=== PATIENT | female | born 1970 | race Caucasian/White ===

== ENCOUNTER 2019-11-26 13:14 | Emergency (ER) | payer OTHER ==
[2019-11-26 13:20] VITALS: BP 144/85
--- NOTE | 2019-11-26 14:37 | ER Document Report ---
HPI - HPI Time Seen by Provider: 11/26/19 14:15 Pain Level: 3 Notes: 49-year-old female patient presenting to the emergency department with complaints of dental pain. Patient reports dental pain has been going on for several days. She states that she knows she has bad teeth. She is specifically complaining at tooth #15 and 16. She states these teeth are broken. She denies fever or drainage from the area. - REPRODUCTIVE Reproductive: DENIES: : Past Medical History - General Information source: Patient - Social History Smoking Status: Never Smoker Chew tobacco use (# tins/day): No Frequency of alcohol use: None Drug Abuse: None Family History: None Patient has suicidal ideation: No Patient has homicidal ideation: No Renal/ Medical History: Denies: Hx Peritoneal Dialysis Musculoskeletal Medical History: Reports Hx Fibromyalgia Psychiatric Medical History: Reports: Hx Depression Past Surgical History: Reports: Hx Orthopedic Surgery - si joint, Other - aneyrsm clipped Vertical Provider Document - CONSTITUTIONAL Notes: PHYSICAL EXAMINATION: GENERAL: Well-appearing, well-nourished and in no acute distress. HEAD: Atraumatic, normocephalic. EYES: Pupils equal round extraocular movements intact, conjunctiva are normal. ENT: Nares patent, poor dentition noted throughout, fractured tooth #15 and 16. No obvious drainable abscess. No evidence of Mio's angina. NECK: Normal range of motion LUNGS: No respiratory distress Musculoskeletal: Normal range of motion NEUROLOGICAL: Normal speech, normal gait. PSYCH: Normal mood, normal affect. SKIN: Warm, Dry, normal turgor, no rashes or lesions noted. - INFECTION CONTROL TRAVEL OUTSIDE OF THE U.S. IN LAST 30 DAYS: No Course - Re-evaluation Re-evalutation: Presentation is most consistent with likely an infected tooth. Airway is patent. Vitals within normal limits. Patient is able swallow without any difficulty. There is no significant facial swelling. No evidence of Mio angina, apical abscess, or airway obstruction. Patient will be started on antibiotics. I've instructed to follow-up with dentistry as earliest ability for definitive management. At this time will discharge with return precautions and follow-up recommendations. Verbal discharge instructions given a the bedside and opportunity for questions given. Medication warnings reviewed. Patient is in agreement with this plan and has verbalized understanding of return precautions and the need for primary care follow-up in the next 24-72 hours. - Vital Signs Vital signs: Temp Pulse Resp BP Pulse Ox 97.8 F 88 16 144/85 H 97 11/26/19 13:19 11/26/19 13:19 11/26/19 13:19 11/26/19 13:19 11/26/19 13:19 Discharge - Discharge Clinical Impression: Dental infection Condition: Stable Disposition: HOME, SELF-CARE Additional Instructions: You have been seen for dental pain. It is very important that you follow-up with a dentist for definitive care. Please return if you develop fever greater than 101, swelling in your face, vomiting, difficulty breathing or swallowing, or any other symptoms that are concerning to you. For pain you should take ibuprofen 800 mg every 8 hours as needed. Prescriptions: Penicillin V Potassium [Penicillin Vk 500 mg Tablet] 500 mg PO BID #20 tablet
[2019-11-26] MEDS ORDERED: LIDOCAINE 2% VISCOUS SOLN 20 ML UDCUP PO ONE (14:43)
== END 2019-11-26 15:06 | disposition home or self-care (01) ==
LOC: ER 13:14
DX: K04.7 Periapical abscess without sinus (principal)
CPT/HCPCS: 99282

== ENCOUNTER 2020-02-18 16:54 | Emergency (ER) | payer OTHER, MEDICAID ==
--- NOTE | 2020-02-18 17:15 | ER Document Report ---
ED Medical Screen (RME) - General Chief Complaint: Post Surgical Pain Stated Complaint: POST SURGICAL PAIN Time Seen by Provider: 02/18/20 17:04 TRAVEL OUTSIDE OF THE U.S. IN LAST 30 DAYS: No - HPI Notes: 02/18/20 17:12 49-year-old female presents to the emergency room with complaints of pain under her left breast after she had a breast reduction and left 3 weeks ago in [place]. States she went to the [facility] 6 days ago was on rides and lifting her arms, states she felt a ripping sensation of her stitches. Patient is on any blood thinners, no chest pain or shortness of breath. Patient is a pack-a-day smoker. Denies any pain that radiates to her back or ripping sensation through her back, only at the area of her stitches. Denies any fevers chills, nausea vomiting or diarrhea. Has not tried any [id number] medications. Has not contacted her surgeon regarding these issues. I have greeted and performed a rapid initial assessment of this patient. A comprehensive ED assessment and evaluation of the patient, analysis of test results and completion of the medical decision making process will be conducted by additional ED providers. PHYSICAL EXAMINATION: GENERAL: Well-appearing, well-nourished and in no acute distress. HEAD: Atraumatic, normocephalic. EYES: Pupils equal round extraocular movements intact, conjunctiva are normal. NECK: Normal range of motion CV: s1, s2 regular. LUNGS: No respiratory distress Musculoskeletal: Normal range of motion SKIN: Warm, Dry, normal turgor, no rashes or lesions noted. Noted erythema around left horizontal stitches with 2 stitches that appear to have been ripped., Right horizontal stitching - Related Data Allergies/Adverse Reactions: No Known Allergies Allergy (Verified 02/18/20 17:02) Past Medical History - Social History Frequency of alcohol use: None Drug Abuse: None Renal/ Medical History: Denies: Hx Peritoneal Dialysis Musculoskeltal Medical History: Reports Hx Fibromyalgia Psychiatric Medical History: Reports: Hx Depression Past Surgical History: Reports: Hx Orthopedic Surgery - si joint, Other - aneyrsm clipped Physical Exam - Vital signs Vitals: Temp Pulse Resp BP Pulse Ox 97.8 F 84 20 129/82 H 97 02/18/20 16:57 02/18/20 16:57 02/18/20 16:57 02/18/20 16:57 02/18/20 16:57 Course - Vital Signs Vital signs: Temp Pulse Resp BP Pulse Ox 97.8 F 84 20 129/82 H 97 02/18/20 16:57 02/18/20 16:57 02/18/20 16:57 02/18/20 16:57 02/18/20 16:57
--- NOTE | 2020-02-18 17:37 | RADIOLOGY REPORT (SQ) ---
EXAM DESCRIPTION: CHEST 2 VIEWS COMPLETED DATE/TIME: 02/18/2020 4:16 pm REASON FOR STUDY: recent breast reduction, chest wall discomfort COMPARISON: None. EXAM PARAMETERS: NUMBER OF VIEWS: two views TECHNIQUE: Digital Frontal and Lateral radiographic views of the chest acquired. RADIATION DOSE: NA LIMITATIONS: none FINDINGS: LUNGS AND PLEURA: No opacities, masses or pneumothorax. No pleural effusion. MEDIASTINUM AND HILAR STRUCTURES: No masses or contour abnormalities. HEART AND VASCULAR STRUCTURES: Heart normal size. No evidence for failure. BONES: No acute findings. HARDWARE: None in the chest. OTHER: No other significant finding. IMPRESSION: NO ACUTE RADIOGRAPHIC FINDING IN THE CHEST. TECHNICAL DOCUMENTATION: JOB ID: [id number] 2010 [employer]- All Rights Reserved Reading location - IP/workstation name: [email or web address]
[2020-02-18 17:50] LABS: ABSOLUTE BASOPHILS # (AUTO) 0.1 10^3/uL (0.0-0.2); ABSOLUTE EOSINOPHILS # (AUTO) 0.6 10^3/uL (0.0-0.6); ABSOLUTE LYMPHOCYTES (AUTO) 2.7 10^3/uL (0.5-4.7); ABSOLUTE MONOCYTES (AUTO) 0.8 10^3/uL (0.1-1.4); ABSOLUTE NEUT (AUTO) 3.6 10^3/uL (1.7-8.2); BASOPHILS % (AUTO) 0.7 % (0-2); EOSINOPHILS % (AUTO) 7.5 % (0-6); HEMATOCRIT 34.7 % (36.0-47.0); HEMOGLOBIN 12.1 g/dL (12.0-15.5); LYMPHOCYTES % (AUTO) 35.3 % (13-45); MEAN CORPUSCULAR HEMOGLOBIN 29.9 pg (27.0-33.4); MEAN CORPUSCULAR HGB CONC 34.9 g/dL (32.0-36.0); MEAN CORPUSCULAR VOLUME 86 fl (80-97); MONOCYTES % (AUTO) 10.2 % (3-13); PLATELET COUNT 313 10^3/uL (150-450); RED BLOOD COUNT 4.05 10^6/uL (3.72-5.28); RED CELL DISTRIBUTION WIDTH 13.9 % (11.5-14.0); SEGMENTED NEUTROPHILS % (AUTO) 46.3 % (42-78); TOTAL CELLS COUNTED % (AUTO) 100 %; WHITE BLOOD COUNT 7.7 10^3/uL (4.0-10.5)
[2020-02-18 17:53] LABS: APPEARANCE,URINE SLIGHTLY-CLOUDY; BILIRUBIN,URINE NEGATIVE (NEGATIVE); COLOR,URINE YELLOW; GLUCOSE, URINE NEGATIVE (NEGATIVE); KETONES,URINE NEGATIVE (NEGATIVE); LEUKOCYTE ESTERASE,URINE NEGATIVE (NEGATIVE); NITRITE,URINE NEGATIVE (NEGATIVE); PROTEIN,URINE NEGATIVE (NEGATIVE); URINE SPECIFIC GRAVITY 1.004; UROBILINOGEN,URINE NEGATIVE mg/dL (<2.0)
[2020-02-18 18:07] LABS: ALBUMIN 3.9 g/dL (3.5-5.0); ALKALINE PHOSPHATASE 93 U/L (38-126); ANION GAP 8 (5-19); ASPARTATE AMINO TRANSFERASE 20 U/L (14-36); BILIRUBIN,DIRECT 0.3 mg/dL (0.0-0.4); BILIRUBIN,TOTAL 0.3 mg/dL (0.2-1.3); BLOOD UREA NITROGEN 16 mg/dL (7-20); CALCIUM 9.3 mg/dL (8.4-10.2); CARBON DIOXIDE 28 mmol/L (22-30); CHLORIDE 103 mmol/L (98-107); GLUCOSE 98 mg/dL (75-110); POTASSIUM 3.8 mmol/L (3.6-5.0); TOTAL PROTEIN 6.9 g/dL (6.3-8.2)
[2020-02-18] MEDS ORDERED: HYDROCODONE/ACETAMINOPHEN 5-325 MG TABLET PO ONE (18:58)
--- NOTE | 2020-02-18 19:06 | ER Document Report ---
ED General - General Chief Complaint: Post Surgical Pain Stated Complaint: POST SURGICAL PAIN Time Seen by Provider: 02/18/20 17:04 Notes: Patient is a 49-year-old female who presents to the emergency department with a chief complaint of postsurgical pain. Patient had a breast reduction done 4 weeks ago in [place] by Dr. Nevaeh Morales. Patient states that she was on a carnival ride 6 days ago and she felt a "ripping sensation" at that time. She states that it hurts to lift her arms up in the air. TRAVEL OUTSIDE OF THE U.S. IN LAST 30 DAYS: No - Related Data Allergies/Adverse Reactions: No Known Allergies Allergy (Verified 02/18/20 17:02) Past Medical History - Social History Smoking Status: Current Every Day Smoker Frequency of alcohol use: None Drug Abuse: None Family History: None Patient has suicidal ideation: No Patient has homicidal ideation: No Renal/ Medical History: Denies: Hx Peritoneal Dialysis Musculoskeletal Medical History: Reports Hx Fibromyalgia Psychiatric Medical History: Reports: Hx Depression Past Surgical History: Reports: Hx Orthopedic Surgery - si joint, Other - aneyrsm clipped Review of Systems - Review of Systems Notes: REVIEW OF SYSTEMS: CONSTITUTIONAL : Denies recent illness. Denies recent unintentional weight loss. Denies fever, chills, or sweats. EENT: Denies eye, ear, throat, or mouth pain, discharge, or symptoms. Denies nasal or sinus congestion. CARDIOVASCULAR: Denies chest pain. RESPIRATORY: Denies shortness of breath, cough, congestion, difficulty breathing, or wheezing. GASTROINTESTINAL: Denies nausea, vomiting, and diarrhea. Denies abdominal pain. Denies constipation. GENITOURINARY: Denies difficulty urinating, burning, blood in urine, urgency or frequency. MUSCULOSKELETAL: Denies neck and back pain. Denies joint pain or swelling. SKIN: Denies rash, itchiness, or lesions BREASTS: See HPI. HEMATOLOGIC : Denies easy bruising or bleeding. LYMPHATIC: Denies swollen, painful, enlarged glands. NEUROLOGICAL: Denies no numbness or tingling denies weakness. Denies headache. Denies altered mental status. Denies alteration in speech. PSYCHIATRIC: Denies stress, anxiety, alteration in sleep patterns, or depression. All other systems reviewed and negative. Physical Exam - Vital signs Vitals: Temp Pulse Resp BP Pulse Ox 97.8 F 84 20 129/82 H 97 03/19/20 16:57 02/18/20 16:57 02/18/20 16:57 02/18/20 16:57 02/18/20 16:57 - Notes Notes: PHYSICAL EXAMINATION: GENERAL: Appears well, healthy, well-nourished, no acute distress. HEAD: Normocephalic, atraumatic. EYES: PERRL, conjunctiva normal, all extraocular movements intact, sclera nonicteric ENT: Moist mucous membranes. NECK: Supple, no noticeable swelling, redness, rash. Normal range of motion. LUNGS: Equal breath sounds bilaterally and clear to auscultation. No wheezes rales or rhonchi. CARDIOVASCULAR: S1-S2, regular rate, regular rhythm. Radial pulses 2+, normal. ABDOMEN: Normoactive bowel sounds. Soft, nontender, no guarding, no rebound tenderness, and no masses palpated. EXTREMITIES: Normal strength and range of motion, no pitting or edema. No cyanosis. NEUROLOGICAL: Moves all extremities upon command. Strength 5/5 in all extremities. PSYCH: Normal mood, normal affect. SKIN: Warm, dry. No rash, lesions, ulcerations noted. Normal skin turgor. BREASTS: Erythema noted around surgical incisions of the breasts from breast reduction. Tender to touch. Some stitching releasing (desolvable sutures). Course - Re-evaluation Re-evalutation: 02/18/20 19:11 I was able to speak with Dr. Imtiaz Morales ([phone]), the surgeon who performed to the breast reduction and he agrees to start the patient on clindamycin and continue pain medication. Patient is to follow-up with her surgeon when she returns back to [place]. He is also recommending bacitracin if the surgery site opens. I have very low suspicion for any life- threatening etiology at this time. Patient is nontoxic in appearance. - Vital Signs Vital signs: Temp Pulse Resp BP Pulse Ox 97.6 F 78 16 124/76 98 02/18/20 19:33 02/18/20 19:33 02/18/20 19:33 02/18/20 19:33 02/18/20 19:33 - Laboratory Result Diagrams: 02/18/20 17:36 02/18/20 17:36 Laboratory results interpreted by me: 02/18/20 17:36 Hct 34.7 L Eos % (Auto) 7.5 H Discharge - Discharge Clinical Impression: Postoperative pain Cellulitis Qualifiers: Site of cellulitis: trunk Site of cellulitis of trunk: unspecified site Qualified Code(s): L03.319 - Cellulitis of trunk, unspecified Condition: Stable Disposition: HOME, SELF-CARE Additional Instructions: You were seen today in the emergency department for postsurgical pain of your breast reduction. Please start clindamycin, your antibiotic, and finish all your antibiotics. Please follow-up with your surgeon when you return back to [facility]. Call them first thing in the morning and make an appointment. If you have an area that opens, you can place triple antibiotic ointment to the area. Wear your binder to help protect your incision sites. Take pain medication as needed. Prescriptions: Hydrocodone/Acetaminophen [[place] 5-325 mg Tablet] 1 tab PO Q6HP PRN #24 tablet PRN Reason: Clindamycin HCl [Cleocin 150 mg Capsule] 300 mg PO Q6 7 Days #56 capsule
[2020-02-18 19:29] VITALS: BP 124/76
== END 2020-02-18 19:33 | disposition home or self-care (01) ==
LOC: ER 16:54
DX: G89.18 Other acute postprocedural pain (principal); L03.319 Cellulitis of trunk, unspecified; Z98.890 Other specified postprocedural states; F17.200 Nicotine dependence, unspecified, uncomplicated
CPT/HCPCS: 36415; 71046; 80053; 81001; 83605; 85025; 99283

== ENCOUNTER 2020-04-26 16:30 | Emergency (ER) | payer MEDICARE ==
[2020-04-26 16:39] VITALS: BP 154/81
--- NOTE | 2020-04-26 16:41 | ER Document Report ---
ED Oral Problem - General Chief Complaint: Toothache Stated Complaint: TOOTH PAIN Time Seen by Provider: 04/26/20 16:33 Primary Care Provider: DENTISTRY [Provider Group] - Follow up as needed Mode of Arrival: Ambulatory Information source: Patient Notes: 49-year-old female presented to ED for dental pain to tooth #3. She is alert oriented respirations regular nonlabored speaking in full sentences. She states the tooth has hurt for about 2 weeks. She states that it is worse today. She states she is from [place] and does not have [place] insurance. She states she cannot go up to [place] because of the pandemic and she will get quarantined in another state if she tries. She states she cannot afford to go to a dentist locally at this time. She is alert and oriented respirations regular and unlabored speaking in full sentences. TRAVEL OUTSIDE OF THE U.S. IN LAST 30 DAYS: No - HPI Patient complains to provider of: Toothache Onset: Other - 2 weeks Onset: Gradual Quality of pain: Sharp, Throbbing Severity: Moderate Pain Level: 4 Associated symptoms: Toothache Worsened by: Cold - And air Relieved by: Nothing Similar symptoms previously: Yes Recently seen / treated by doctor/dentist: No - Related Data Allergies/Adverse Reactions: No Known Allergies Allergy (Verified 04/26/20 16:48) Past Medical History - General Information source: Patient - Social History Smoking Status: Current Every Day Smoker Cigarette use (# per day): Yes - Pack per day Smoking Education Provided: Yes - 4 minutes Frequency of alcohol use: None Drug Abuse: None Family History: None, Arthritis Patient has suicidal ideation: No Patient has homicidal ideation: No - Past Medical History Cardiac Medical History: Reports: None Pulmonary Medical History: Reports: None EENT Medical History: Reports: None Neurological Medical History: Reports: None Endocrine Medical History: Reports: None Renal/ Medical History: Reports: None Malignancy Medical History: Reports: None GI Medical History: Reports: None Musculoskeletal Medical History: Reports Hx Fibromyalgia, Reports Other - Truncal dystonia, sciatica Skin Medical History: Reports None Psychiatric Medical History: Reports: Hx Depression Traumatic Medical History: Reports: Hx Traumatic Brain Injury Infectious Medical History: Reports: None Past Surgical History: Reports: Hx Neurologic Surgery - aneyrsm clipped brain bleed removed, Hx Orthopedic Surgery - si joint - Immunizations Immunizations up to date: Yes Review of Systems - Review of Systems Constitutional: No symptoms reported EENT: Mouth swelling, Dental problem Cardiovascular: No symptoms reported Respiratory: No symptoms reported Gastrointestinal: No symptoms reported Genitourinary: No symptoms reported Female Genitourinary: No symptoms reported Musculoskeletal: No symptoms reported Skin: No symptoms reported Hematologic/Lymphatic: No symptoms reported Neurological/Psychological: No symptoms reported Physical Exam - Vital signs Vitals: Temp Pulse Resp BP Pulse Ox 98.0 F 78 14 154/81 H 97 04/26/20 16:34 04/26/20 16:34 04/26/20 16:34 04/26/20 16:34 04/26/20 16:34 Interpretation: Normal - General General appearance: Appears well, Alert - HEENT Head: Normocephalic, Atraumatic Eyes: Normal Pupils: PERRL Ears: Normal External canal: Normal Tympanic membrane: Normal Sinus: Normal Nasal: Normal Mouth/Lips: Caries Teeth diagram: 1 - Dental cavity with redness surrounding the tooth - Respiratory Respiratory status: No respiratory distress Chest status: Nontender Breath sounds: Normal Chest palpation: Normal - Cardiovascular Rhythm: Regular Heart sounds: Normal auscultation Murmur: No - Abdominal Inspection: Normal Distension: No distension Bowel sounds: Normal Tenderness: Nontender Organomegaly: No organomegaly - Back Back: Normal, Nontender - Extremities General upper extremity: Normal inspection, Nontender, Normal color, Normal ROM, Normal temperature General lower extremity: Normal inspection, Nontender, Normal color, Normal ROM, Normal temperature, Normal weight bearing. No: Babak's sign - Neurological Neuro grossly intact: Yes Cognition: Normal Orientation: AAOx4 Fertile Coma Scale Eye Opening: Spontaneous Emiliana Coma Scale Verbal: Oriented Fertile Coma Scale Motor: Obeys Commands Fertile Coma Scale Total: 15 Speech: Normal Motor strength normal: LUE, RUE, LLE, RLE Sensory: Normal - Psychological Associated symptoms: Normal affect, Normal mood - Skin Skin Temperature: Warm Skin Moisture: Dry Skin Color: Normal Course - Re-evaluation Re-evalutation: 04/26/20 16:54 Presentation is most consistent with likely an infected tooth. Airway is patent. Vitals within normal limits. Patient is able swallow without any difficulty. There is no significant facial swelling. No evidence of Mio angina, apical abscess, or airway obstruction. Patient will be started on antibiotics. I've instructed to follow-up with dentistry as earliest ability for definitive management. At this time will discharge with return precautions and follow-up recommendations. Verbal discharge instructions given a the bedside and opportunity for questions given. Medication warnings reviewed. Patient is in agreement with this plan and has verbalized understanding of return precautions and the need for primary care follow-up in the next 24-72 ho urs. - Vital Signs Vital signs: Temp Pulse Resp BP Pulse Ox 98.0 F 78 14 154/81 H 97 04/26/20 16:49 04/26/20 16:34 04/26/20 16:34 04/26/20 16:34 04/26/20 16:34 Discharge - Discharge Clinical Impression: Pain due to dental caries Condition: Stable Disposition: HOME, SELF-CARE Additional Instructions: TOOTHACHE: Your pain is due to dental decay. The tooth must be repaired in order for you to feel better. You will, therefore, be referred to a dentist. We do not have dentists on the staff at [facility]. Severe swelling or drainage around a tooth usually means a dental abscess. This also requires evaluation and treatment by the dentist, but antibiotics may be prescribed while awaiting dental treatment. You should be rechecked immediately if you develop major swelling of the face, increasing pain, a lump in the jaw or gums, headache, difficulty swall owing, or fever. Ibuprofen Ibuprofen is an excellent, safe drug for pain control. In addition, it has potent antiinflammatory effects which are beneficial, especially in the treatm ent of injuries, arthritis, or tendonitis. It's best to take ibuprofen with food. Persons with ulcer disease or allergy to aspirin should notify their physician of this before taking ibuprofen. Take the medication exactly as prescribed. Don't take additional doses unless instructed to do so by your doctor. If you develop wheezing, shortness of breath, hives, faintness, stomach pain, vomiting, or dark black stools, return for re-evaluation at once. PENICILLIN V K: You have been given a prescription for Penicillin VK. Your physician has determined that this is the best antibiotic for your condition. Pen VK can be taken with meals, however more of the antibiotic gets into the bloodstream if it's taken on an empty stomach. Penicillin usually has no side effects. However, allergy to penicillins is common. If you have had an allergic reaction to any drug of the penicillin family, you should never take any other penicillin. Notify your doctor at once if you develop hives, itching, swelling, faintness, or shortness of breath. Given you a syringe of viscous lidocaine. Please place a small amount on your finger and rub to the gums and tooth. You can do this every 4 hours for the pain. Any more often than that can erode the skin on your gums. FOLLOW-UP CARE: You have been referred for follow-up care to the dentists listed below. Call the dentists office for an appointment as you were instructed or within the next two days. If you experience worsening or a significant change in your symptoms, notify the physician immediately or return to the Emergency Department at any time for re-evaluation. [facility] [address] [place] [address] Formerly [facility] [place] [address] [facility] [address] [facility] [address]) [facility] [address] [email or web address] [address] [place] [address] Saturday- 8:00am to 5:00 pm Will see patients from other [facility]. Charges based on income and family size and accepts Medicare, Medicaid, and Insurances Will pull molars [facility] [address] Hours of Operation 8:00 am - 4:30 pm weekdays The following dental offices accept Medicaid: [facility] Dr. Barragan Dr. Brown Dr. Guerrero Dr. Melchor Marty Alvarado Lutsavage, and [facility] oral surgery Dr. Ridley ([place]) Dr. Houston ([place]) [facility] Drs. Mathur and Geronimo ([place]) Dr. Landa ([place]) [facility] Dr. Alfonso ([place]) Drs. Das and ([place]) Medicaid Care Line Prescriptions: Penicillin V Potassium [Penicillin Vk 500 mg Tablet] 500 mg PO BID #20 tablet Forms: Elevated Blood Pressure, Smoking Cessation Education Referrals: DENTISTRY [Provider Group] - Follow up as needed
[2020-04-26] MEDS ORDERED: LIDOCAINE 2% VISCOUS SOLN 15 ML UDCUP PO ONE (16:44)
[2020-04-26] MEDS ORDERED: PENICILLIN V POTASSIUM 500 MG TABLET PO ONE (16:44)
[2020-04-26] MEDS ORDERED: ACETAMINOPHEN 325 MG TABLET PO ONE (16:44)
== END 2020-04-26 17:08 | disposition home or self-care (01) ==
LOC: ER 16:30
DX: K02.9 Dental caries, unspecified (principal); K08.89 Other specified disorders of teeth and supporting structures; F17.210 Nicotine dependence, cigarettes, uncomplicated
CPT/HCPCS: 99282; A9270 ×2; J3490

== ENCOUNTER 2020-11-04 22:17 | Emergency (ER) | payer MEDICARE, MEDICAID ==
--- NOTE | 2020-11-04 22:43 | ER Document Report ---
ED Medical Screen (RME) - General Chief Complaint: Breathing Difficulty Stated Complaint: DIFFICULTY BREATHING Time Seen by Provider: 11/04/20 22:34 Mode of Arrival: Wheelchair Information source: Patient Notes: 50-year-old female presented to ED for cough congestion shortness of breath. She states she was Covid negative x2 couple weeks ago. She states she has had cough and congestion fatigue times a week. Denies any loss of sense of smell or taste but states she is very tired and short of breath. When the PCT got her vital signs they put that her sat was 91% it is 96% right now pulse is 88 and temperature is 98.4. She states she does smoke a pack a day does not drink or use any illicit drugs. She denies any history of COPD asthma. She does have swelling to both legs. I have greeted and performed a rapid initial assessment of this patient. A comprehensive ED assessment and evaluation of the patient, analysis of test results and completion of medical decision making process will be conducted by an additional ED providers. TRAVEL OUTSIDE OF THE U.S. IN LAST 30 DAYS: No - Related Data Allergies/Adverse Reactions: No Known Allergies Allergy (Verified 04/26/20 16:48) Past Medical History Neurological Medical History: Reports: Hx Migraine Renal/ Medical History: Denies: Hx Peritoneal Dialysis GI Medical History: Reports: Hx Gastroesophageal Reflux Disease Musculoskeltal Medical History: Reports Hx Arthritis, Reports Hx Fibromyalgia Psychiatric Medical History: Reports: Hx Depression Traumatic Medical History: Reports: Hx Traumatic Brain Injury Past Surgical History: Reports: Hx Neurologic Surgery - aneyrsm clipped brain bleed removed, Hx Orthopedic Surgery - si joint, Other - aneyrsm clipped - Immunizations Immunizations up to date: Yes Physical Exam - Vital signs Vitals: Temp Pulse Resp BP Pulse Ox 98.0 F 95 21 H 129/72 H 91 L 11/04/20 22:24 11/04/20 22:24 11/04/20 22:24 11/04/20 22:24 11/04/20 22:24 Course - Vital Signs Vital signs: Temp Pulse Resp BP Pulse Ox 98.0 F 95 21 H 129/72 H 91 L 11/04/20 22:24 11/04/20 22:24 11/04/20 22:24 11/04/20 22:24 11/04/20 22:24
[2020-11-05 00:30] LABS: ABSOLUTE LYMPHOCYTES (AUTO) 0.5 10^3/uL (0.5-4.7); ABSOLUTE MONOCYTES (AUTO) 0.1 10^3/uL (0.1-1.4); ABSOLUTE NEUT (AUTO) 6.6 10^3/uL (1.7-8.2); BASOPHILS % (AUTO) 0.3 % (0-2); EOSINOPHILS % (AUTO) 0.1 % (0-6); HEMOGLOBIN 11.9 g/dL (12.0-15.5); LYMPHOCYTES % (AUTO) 6.6 % (13-45); MEAN CORPUSCULAR HEMOGLOBIN 28.1 pg (27.0-33.4); MEAN CORPUSCULAR HGB CONC 33.2 g/dL (32.0-36.0); MEAN CORPUSCULAR VOLUME 85 fl (80-97); MONOCYTES % (AUTO) 1.5 % (3-13); PLATELET COUNT 241 10^3/uL (150-450); RED BLOOD COUNT 4.26 10^6/uL (3.72-5.28); RED CELL DISTRIBUTION WIDTH 16.8 % (11.5-14.0); SEGMENTED NEUTROPHILS % (AUTO) 91.5 % (42-78); TOTAL CELLS COUNTED % (AUTO) 100 %; WHITE BLOOD COUNT 7.2 10^3/uL (4.0-10.5)
--- NOTE | 2020-11-05 00:43 | RADIOLOGY REPORT (SQ) ---
EXAM DESCRIPTION: X-RAY CHEST- One View CLINICAL HISTORY: Cough and congestion COMPARISON: February 17, 2020 TECHNIQUE: Single view of the chest. FINDINGS: There is blunting of the left costophrenic angle with mild adjacent patchy opacities. The pulmonary vascularity is normal. The cardiomediastinal silhouette is stable in size. The osseous structures are unchanged. IMPRESSION: Evidence of a small left pleural effusion with nonspecific adjacent patchy opacities.
[2020-11-05 00:48] LABS: ALBUMIN 3.9 g/dL (3.5-5.0); ALKALINE PHOSPHATASE 104 U/L (38-126); ANION GAP 12 (5-19); ASPARTATE AMINO TRANSFERASE 30 U/L (14-36); BILIRUBIN,DIRECT 0.2 mg/dL (0.0-0.4); BILIRUBIN,TOTAL 0.4 mg/dL (0.2-1.3); BLOOD UREA NITROGEN 7 mg/dL (7-20); CALCIUM 9.3 mg/dL (8.4-10.2); CARBON DIOXIDE 23 mmol/L (22-30); CHLORIDE 99 mmol/L (98-107); GLUCOSE 159 mg/dL (75-110); POTASSIUM 4.4 mmol/L (3.6-5.0); TOTAL PROTEIN 6.8 g/dL (6.3-8.2)
[2020-11-05] MEDS ORDERED: CEFTRIAXONE 1 GM/D5W RTU 1 GM/50 ML RTUPB IV ONE (00:51)
[2020-11-05] MEDS ORDERED: IPRATROPIUM/ALBUTEROL 0.5-2.5 MG/3 ML AMPUL NEB ONE ×2 (00:51→03:02)
[2020-11-05] MEDS ORDERED: NORMAL SALINE 500 ML IV ONE (01:40)
[2020-11-05] MEDS ORDERED: AZITHROMYCIN INJ 500 MG VIAL IV ONE (01:41)
[2020-11-05 02:10] LABS: ARTERIAL BLOOD BASE EXCESS -1.2 mmol/L; ARTERIAL BLOOD FIO2 ROOM AIR; ARTERIAL BLOOD H2CO3 1.09 mmol/L (1.05-1.35); ARTERIAL BLOOD HCO3 22.8 mmol/L (20-24); ARTERIAL BLOOD O2 SATURATION 93.6 % (94-98); ARTERIAL BLOOD PCO2 36.1 mmHg (35-45); ARTERIAL BLOOD PH 7.42 (7.35-7.45); ARTERIAL BLOOD PO2 66.3 mmHg (80-100); ARTERIAL BLOOD TOTAL CO2 23.9 mmol/L (21-25)
[2020-11-05] MEDS ORDERED: DEXAMETHASONE SOD PHOS INJ 10 MG/1 ML VIAL IV ONE (02:55)
--- NOTE | 2020-11-05 03:16 | ER Document Report ---
ED Respiratory Problem - General Chief Complaint: Shortness Of Breath Stated Complaint: DIFFICULTY BREATHING Time Seen by Provider: 11/04/20 22:34 Primary Care Provider: MARVEL RAMIREZ MD [Primary Care Provider] - Follow up in 3-5 days Mode of Arrival: Wheelchair TRAVEL OUTSIDE OF THE [place] IN LAST 30 DAYS: No - HPI Notes: 50-year-old female with past medical history for cerebral aneurysm, brain tumor, depression to the emergency department with complaints of progressively worsening shortness of breath. She states that she has been coughing and feeling short of breath for about a week. She did see her primary care doctor, Dr. Ramirez, in [facility] and he diagnosed her with a pneumonia. He had called in antibiotics to the pharmacy today but she was not able to get them filled. She states she came to the emergency department because she was feeling worse. When she initially arrived her oxygen level was 91%. She denies any k nown COVID-19 exposures. She states that she is not really been out in public. She denies any fevers, chills, loss of smell or taste. She does admit to slight sore throat. She denies any body aches. The patient was evaluated during the global COVID 19 pandemic, and that diagnosis was suspected/considered upon their initial presentation. Their evaluation, treatment, and testing was consistent with current guidelines for patients who present with complaints or symptoms that may be related to COVID-19. - Related Data Allergies/Adverse Reactions: No Known Allergies Allergy (Verified 04/26/20 16:48) Past Medical History - General Information source: Patient - Social History Smoking Status: Current Every Day Smoker Chew tobacco use (# tins/day): No Frequency of alcohol use: None Drug Abuse: None Family History: None, Arthritis Neurological Medical History: Reports: Hx Migraine, Hx Seizures Renal/ Medical History: Denies: Hx Peritoneal Dialysis GI Medical History: Reports: Hx Gastroesophageal Reflux Disease Musculoskeletal Medical History: Reports Hx Arthritis, Reports Hx Fibromyalgia Psychiatric Medical History: Reports: Hx Depression Traumatic Medical History: Reports: Hx Traumatic Brain Injury Past Surgical History: Reports: Hx Neurologic Surgery - aneyrsm clipped brain bleed removed, Hx Orthopedic Surgery - si joint, Other - aneyrsm clipped - Immunizations Immunizations up to date: Yes Review of Systems - Review of Systems Constitutional: denies: Chills, Fever EENT: Throat pain Cardiovascular: denies: Chest pain, Palpitations, Heart racing, Orthopnea, Dyspnea, Syncope, Dizziness, Lightheaded Respiratory: Cough, Short of breath Gastrointestinal: denies: Abdominal pain, Diarrhea, Nausea, Vomiting Genitourinary: No symptoms reported Female Genitourinary: No symptoms reported Musculoskeletal: No symptoms reported Skin: No symptoms reported Neurological/Psychological: No symptoms reported -: Yes All other systems reviewed and negative Physical Exam - Vital signs Vitals: Temp 98.5 F 11/04/20 22:17 Temp Pulse Resp BP Pulse Ox 98.0 F 95 21 H 110/72 93 11/04/20 22:24 11/04/20 22:24 11/05/20 02:23 11/05/20 02:23 11/05/20 02:23 Intake & Output 11/03/20 11/04/20 11/05/20 06:59 06:59 06:59 Intake Total 50 Balance 50 Weight 74.9 kg Weight/Height Weight 74.9 kg Height 5 ft 3 in Interpretation: Normal - General General appearance: Alert - HEENT Head: Normocephalic, Atraumatic Eyes: Normal Pupils: PERRL Neck: Normal, Supple - Respiratory Respiratory status: No respiratory distress Chest status: Nontender Breath sounds: Decreased air movement, Rales. No: Rhonchi, Wheezing Chest palpation: Normal Notes: Decreased breath sounds throughout. Mild crackles. Patient has poor inspiratory effort and she has a hacking dry cough - Cardiovascular Rhythm: Regular Heart sounds: Normal auscultation Murmur: No Notes: trace pitting edema bilaterally - Abdominal Inspection: Normal Distension: No distension Bowel sounds: Normal Tenderness: Nontender. No: Tender, McBurney's point, Barajas's sign, Guarding, Rebound Organomegaly: No organomegaly - Back Back: Normal, Nontender - Neurological Neuro grossly intact: Yes Cognition: Normal Orientation: AAOx4 Emiliana Coma Scale Eye Opening: Spontaneous Emiliana Coma Scale Verbal: Oriented Emiliana Coma Scale Motor: Obeys Commands Emiliana Coma Scale Total: 15 Speech: Normal Cranial nerves: Normal Cerebellar coordination: Normal Motor strength normal: LUE, RUE, LLE, RLE Additional motor exam normals: Equal log buncher Sensory: Normal - Psychological Associated symptoms: Normal affect, Normal mood - Skin Skin Temperature: Warm Skin Moisture: Dry Skin Color: Normal Course - Re-evaluation Re-evalutation: 11/05/20 03:[address] Richardson. Patient borderline meets admission melonie chambers for this pneumonia on her chest x-ray. Her ABG is mildly abnormal and when she ambulates and coughs her oxygen level desats to 90% and she becomes very winded. I discussed findings with patient and offered to speak with the hospitalist about possible admission. She states that she would like for that to happen. She feels little bit better after breathing treatment. Ordered a second breathing treatment and Decadron for the patient. She is received azithromycin and Rocephin. Spoke with Dr. Lehman about the patient. He will come see the patient and then we will discuss further. Dr. Lehman and I spoke further after he saw the patient. Plan to discharge home. Her Curb 65 score is zero and he feels like maybe some of her breathing discomfort is related to her sore throat. Both Dr. Lehman and I have talked to the patient about purchasing a pulse ox and monitor her O2 levels. Will send home with Azithromycin and albuterol as well as cough syrup. Patient agrees with the plan. - Vital Signs Vital signs: Temp Pulse Resp BP Pulse Ox 98.0 F 95 21 H 110/72 93 11/04/20 22:24 11/04/20 22:24 11/05/20 02:23 11/05/20 02:23 11/05/20 02:23 - Laboratory Result Diagrams: 11/05/20 00:07 11/05/20 00:07 Laboratory results interpreted by me: 11/05/20 11/05/20 11/05/20 00:07 00:07 00:07 Hgb 11.9 L RDW 16.8 H Lymph % (Auto) 6.6 L Sutton % (Auto) 1.5 L Seg Neutrophils % 91.5 H ABG pO2 ABG O2 Saturation Sodium 134.3 L Glucose 159 H Lactic Acid NT-Pro-B Natriuret Pep 246 H 11/05/20 11/05/20 00:38 01:36 Hgb RDW Lymph % (Auto) Sutton % (Auto) Seg Neutrophils % ABG pO2 66.3 L ABG O2 Saturation 93.6 L Sodium Glucose Lactic Acid 2.7 H NT-Pro-B Natriuret Pep - Diagnostic Test Radiology reviewed: Image reviewed, Reports reviewed - EKG Interpretation by Me Additional EKG results interpreted by me: rate: 84 rhythm: normal sinus Interpretation: No STEMI, normal axis, no LVH. No comparison Discharge - Discharge Clinical Impression: Shortness of breath, Encounter for screening laboratory testing for COVID-19 virus Pneumonia Qualifiers: Pneumonia type: due to unspecified organism Laterality: left Lung location: unspecified part of lung Qualified Code(s): J18.9 - Pneumonia, unspecified organism Condition: Stable Disposition: HOME, SELF-CARE Instructions: COVID-19 Guidance for Persons Under Investigation, Pneumonia ([facility]) Additional Instructions: Take antibiotics as prescribed. Use albuterol inhaler to help with your shortness of breath. Use cough medicine to also aid in your symptom relief. Please buy a pulse oximeter to measure your oxygen levels at home. If your oxygen levels get below 92% and you feel more short of breath ,please return. Please follow-up with your primary care physician at the beginning of next week without fail. You have been tested for COVID-19 and the results come back in 3 to 5 days. Please quarantine until you have further information about your COVID-19 test. As a person under investigation for COVID-19, [place] department of Health and Human Services, division of public health advises you to adhere to the following guidance until your test results are reported to you. If your test result is positive, you will receive additional information from your provider and your local health department at that time. Remain at home until you are cleared by the healthcare provider public health authorities. Keep a log of visitors to your home and notify any visitors to your home of your isolation status. If you plan to move to a new address or leave the country, notify the local health department and your County. Call your doctor or seek care if you have an urgent medical need. Before seeking medical care, call ahead to get instructions from the provider before arriving at the medical office, clinic, or hospital. Notify them that you are being tested for the virus that causes COVID-19 so that arrangements can be made, as necessary, to prevent transmission to others in the healthcare setting. Next, notify the local health department and your County. If a medical emergency arises and you need to call 911, informed the first responders that you are being tested for the virus that causes COVID-19. Next, notified the local health department and your County. Prescriptions: Albuterol Sulfate [Proair HFA Inhalation Aerosol 8.5 gm MDI] 2 puff IH Q4H PRN #1 mdi PRN Reason: Dextromethorphan HBr [Tussin Cough] 15 mg PO Q8H #120 ml Azithromycin [Zithromax 250 mg Tablet] 250 mg PO DAILY #4 tablet Referrals: MARVEL RAMIREZ MD [Primary Care Provider] - Follow up in 3-5 days
[2020-11-05] MEDS ORDERED: GUAIFENESIN/D-METHORPHAN (200-20 MG) SYRUP 10 ML PO ONE (03:42)
[2020-11-05 04:12] VITALS: BP 113/66
--- NOTE | 2020-11-05 07:25 | EKG REPORT ---
SEVERITY:- NORMAL ECG - SINUS RHYTHM : Confirmed by: Isrrael Cortes MD 05-Nov-2020 07:25:17
== END 2020-11-05 04:16 | disposition home or self-care (01) ==
LOC: ER 22:17
DX: J18.9 Pneumonia, unspecified organism (principal); J90 Pleural effusion, not elsewhere classified; J02.9 Acute pharyngitis, unspecified; R06.02 Shortness of breath; R05 Cough; R60.9 Edema, unspecified; F17.200 Nicotine dependence, unspecified, uncomplicated; Z20.828 Contact with and (suspected) exposure to other viral communicable diseases
CPT/HCPCS: 93005; 94640 ×2; 99284; 96365; 96367; 36415; 87040; 82803; 83605; 85025; 80053; 84484; 83880; 71045; 93010; U0003; A9270; J7040; J0456; J0696; J1100; C9803; 87635; J3490